=== PATIENT | male | born 1965 | race Hispanic/Latino ===

== ENCOUNTER 2017-07-18 15:41 | Emergency (ER) | payer SELFPAY ==
[2017-07-18] MEDS ORDERED: HumuLIN R IV ONE ×2 (16:30→21:01)
[2017-07-18] MEDS ORDERED: NACL 0.9% 1000 ML 1,000 ML IV ONE ×4 (16:30→21:01)
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
[2017-07-18 17:01] LABS: Basophils # (Auto) 0.1 K/mm3 (0.0-0.1); Basophils % (Auto) 0.5 % (0.0-1.8); Lymphocytes # (Auto) 1.6 K/mm3 (1.2-5.4); Lymphocytes % (Auto) 10.4 % (13.4-35.0); Mean Corpuscular HGB Conc 31 % (32-34); Mean Corpuscular Volume 83 fl (84-94); Monocytes % (Auto) 6.1 % (0.0-7.3); Platelet Count 365 K/mm3 (140-440); Red Cell Distribution Width 14.7 % (13.2-15.2)
[2017-07-18 17:02] LABS: Hematocrit 46.3 % (35.5-45.6); Hemoglobin 14.3 gm/dl (11.8-15.2); Mean Corpuscular Hemoglobin 26 pg (28-32)
--- NOTE | 2017-07-18 17:11 | Cat Scan Report ---
FINAL REPORT PROCEDURE: CT HEAD/BRAIN WO CON TECHNIQUE: Computerized tomography of the head was performed without contrast material. HISTORY: Altered mental status COMPARISON: No prior studies are available for comparison. FINDINGS: There is no CT evidence of intracranial mass, hemorrhage, acute territorial infarction, or hydrocephalus. The intracranial arteries are symmetric in density. Calvarium is intact. The visualized paranasal sinuses and mastoids are aerated. IMPRESSION: No CT evidence of acute abnormality
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
[2017-07-18 17:25] LABS: Alanine Aminotransferase 15 units/L (7-56); Albumin 4.5 g/dL (3.9-5); BUN/Creatinine Ratio 18; Blood Urea Nitrogen 18 mg/dL (9-20); Calcium 10.4 mg/dL (8.4-10.2); Hemolysis Index 17; Lipase 33 units/L (13-60)
[2017-07-18] MEDS ORDERED: D50W (25GM) Syringe IV PRN (17:44)
--- NOTE | 2017-07-18 18:22 | XRay Report ---
FINAL REPORT EXAM: XR CHEST 1V AP HISTORY: chest pain TECHNIQUE: upright single view chest PRIORS: None. FINDINGS: Cardiac and mediastinal contours are unremarkable. No focal pulmonary infiltrate is identified. No pleural fluid collection seen. Pulmonary vasculature is unremarkable. IMPRESSION: Negative single-view chest
[2017-07-18] MEDS ORDERED: HumuLIN R SUB-Q ONE (18:38)
[2017-07-18] MEDS ORDERED: SODIUM BICARBONATE IV ONE (18:50)
[2017-07-18 18:57] LABS: BUN/Creatinine Ratio 18; Blood Urea Nitrogen 18 mg/dL (9-20); Calcium 9.8 mg/dL (8.4-10.2); Hemolysis Index 17
[2017-07-18] MEDS ORDERED: HumuLIN R 100 UNITS in NACL 0.9% 99 ML IV SCH (19:00)
[2017-07-18 19:34] LABS: Bilirubin,Urine NEG (Negative); Blood,Urine NEG (Negative); Color,Urine Straw (Yellow); Mucus,Urine FEW /HPF; Urobilinogen,Urine < 2.0 mg/dL (<2.0); WBC,Urine < 1.0 /HPF (0.0-6.0)
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
[2017-07-18 19:42] LABS: Amphetamine Screen,Urine PRESUMPTIVE NEGATIVE; Benzodiazepines Screen,Urine PRESUMPTIVE NEGATIVE; Cannabinoid Screen,Urine PRESUMPTIVE NEGATIVE; Cocaine Screen,Urine PRESUMPTIVE NEGATIVE; Methadone Screen,Urine PRESUMPTIVE NEGATIVE; Opiate Screen,Urine PRESUMPTIVE NEGATIVE
[2017-07-18 19:48] LABS: BUN/Creatinine Ratio 17; Blood Urea Nitrogen 17 mg/dL (9-20); Calcium 9.6 mg/dL (8.4-10.2); Hemolysis Index 12
[2017-07-18] MEDS ORDERED: ZOSYN/NS 3.375GM/50ML 3.375 GM/50 ML BAG IV SCH (20:00)
[2017-07-18 20:18] LABS: Basophils # (Auto) 0.1 K/mm3 (0.0-0.1); Basophils % (Auto) 0.7 % (0.0-1.8); Hematocrit 42.7 % (35.5-45.6); Hemoglobin 13.4 gm/dl (11.8-15.2); Lymphocytes # (Auto) 1.5 K/mm3 (1.2-5.4); Lymphocytes % (Auto) 11.5 % (13.4-35.0); Mean Corpuscular HGB Conc 31 % (32-34); Mean Corpuscular Volume 82 fl (84-94); Monocytes # (Auto) 0.9 K/mm3 (0.0-0.8); Monocytes % (Auto) 7.1 % (0.0-7.3); Platelet Count 320 K/mm3 (140-440); Red Blood Count 5.21 M/mm3 (3.65-5.03); Red Cell Distribution Width 14.4 % (13.2-15.2)
[2017-07-18 20:21] LABS: Mean Corpuscular Hemoglobin 26 pg (28-32)
[2017-07-18] MEDS ORDERED: HumuLIN R ONE (20:46)
[2017-07-18 20:47] LABS: BUN/Creatinine Ratio 19; Blood Urea Nitrogen 17 mg/dL (9-20); Hemolysis Index 23
[2017-07-18 21:11] VITALS: BP 104/52
[2017-07-18 21:43] LABS: BUN/Creatinine Ratio 20; Blood Urea Nitrogen 16 mg/dL (9-20); Calcium 9.1 mg/dL (8.4-10.2); Hemolysis Index 68
== END 2017-07-18 23:05 | disposition admitted as inpatient to this hospital (09) ==
LOC: ED 15:41
DX: R41.82 Altered mental status, unspecified (principal); I10 Essential (primary) hypertension; E11.10 Type 2 diabetes mellitus with ketoacidosis without coma
CPT/HCPCS: 36415; 70450; 71045; 72125; 80048; 80053; 80307; 81001; 82140; 82962; 83690; 83735; 84100; 85025; 87040; 96361; 96365; 96372; 96375; 99285; J2543; J7030; J1815

== ENCOUNTER 2017-07-19 12:48 | Inpatient (IN) | payer OTHER ==
[2017-07-19] MEDS ORDERED: D50W (25GM) Syringe IV PRN ×2 (13:09→14:38)
[2017-07-19] MEDS ORDERED: NACL 0.9% 1000 ML 1,000 ML IV ONE ×2 (13:11)
[2017-07-19] MEDS ORDERED: TYLENOL PR ONE (13:12)
--- NOTE | 2017-07-19 13:16 | Emergency Department Report ---
ED General Adult HPI - General Chief complaint: Altered Mental Status Stated complaint: DKA/ALTERED MENTAL STATUS Time Seen by Provider: 07/19/17 13:09 Source: EMS Mode of arrival: Stretcher Limitations: Altered Mental Status - History of Present Illness Initial comments: Patient is 52 years old male history of diabetes on insulin. Patient noncompliant with his medication. He was seen here yesterday for DKA and he refused to stay. Patient was found laying on the street altered. Patient brought by EMS to the ER for evaluation of altered mental status. Patient initial blood sugars more than 100. Tachycardic at 120 with a temperature of 101.2. Patient responded to command. - Related Data Previous Rx's Medication Instructions Recorded Last Taken Type Insulin NPH/Regular [Novolin 70/30] 18 unit SQ BIDDIAB #1 vial 07/18/17 Unknown Rx Syring W-Ndl,Disp,Insul,0.5 ml 1 each MC BID #1 box 07/18/17 Unknown Rx [Ultra Comfort] Allergies Allergy/AdvReac Type Severity Reaction Status Date / Time No Known Allergies Allergy Unverified 07/18/17 16:14 ED Review of Systems ROS: Stated complaint: DKA/ALTERED MENTAL STATUS Other details as noted in HPI Comment: All other systems reviewed and negative Constitutional: denies: chills, fever Respiratory: denies: cough, orthopnea, shortness of breath, SOB with exertion, SOB at rest, wheezing Cardiovascular: denies: chest pain, palpitations, dyspnea on exertion Gastrointestinal: denies: abdominal pain, nausea, vomiting, diarrhea, constipation, hematemesis, melena, hematochezia Neurological: denies: headache, weakness ED Past Medical Hx - Past Medical History Previous Medical History?: Yes Hx Hypertension: Yes Hx Diabetes: Yes - Social History Smoking Status: Unknown if ever smoked - Medications Home Medications: Home Medications Medication Instructions Recorded Confirmed Last Taken Type Insulin NPH/Regular [Novolin 70/30] 18 unit SQ BIDDIAB #1 vial 07/18/17 Unknown Rx Syring W-Ndl,Disp,Insul,0.5 ml 1 each MC BID #1 box 07/18/17 07/19/17 Unknown Rx [Ultra Comfort] ED Physical Exam - General Limitations: Altered Mental Status General appearance: obtunded - Head Head exam: Present: atraumatic, normocephalic, normal inspection - Eye Eye exam: Present: normal appearance, PERRL - ENT ENT exam: Present: normal exam, normal orophraynx, mucous membranes dry - Neck Neck exam: Present: normal inspection, full ROM. Absent: tenderness, meningismus, lymphadenopathy, thyromegaly - Respiratory Respiratory exam: Present: normal lung sounds bilaterally. Absent: respiratory distress, wheezes, rales, rhonchi, stridor, chest wall tenderness, accessory muscle use, decreased breath sounds, prolonged expiratory - Cardiovascular Cardiovascular Exam: Present: tachycardia - GI/Abdominal GI/Abdominal exam: Present: soft, normal bowel sounds. Absent: distended, tenderness, guarding, rebound, rigid, organomegaly, mass, bruit, pulsatile mass , hernia - Extremities Exam Extremities exam: Present: normal inspection, full ROM, normal capillary refill - Back Exam Back exam: Present: normal inspection, full ROM. Absent: tenderness, CVA tenderness (R), CVA tenderness (L), muscle spasm, paraspinal tenderness, vertebral tenderness - Neurological Exam Neurological exam: Present: alert, oriented X3, CN II-XII intact - Skin Skin exam: Present: warm, intact, normal color ED Course Vital Signs 07/19/17 07/19/17 07/19/17 13:00 13:12 13:16 Temperature 101.4 F H 100.4 F H Pulse Rate 122 H 119 H Respiratory 20 21 21 Rate Blood Pressure 121/63 Blood Pressure 122/63 [Left] ED Medical Decision Making - Lab Data Result diagrams: 07/19/17 13:13 07/19/17 13:13 - Radiology Data Radiology results: report reviewed Chest x-ray unremarkable. - Medical Decision Making I discussed patient with Dr Gipson, he agreed to admit to his service. Critical Care Time: Yes Critical care time in (mins) excluding proc time.: 30 Critical care attestation.: If time is entered above; I have spent that time in minutes in the direct care of this critically ill patient, excluding procedure time. ED Disposition Clinical Impression: DKA (diabetic ketoacidoses), Altered mental state Disposition: OP ADMIT IP TO THIS HOSP Is pt being admited?: Yes Condition: Stable Instructions: Diabetic Ketoacidosis (ED) Referrals: PRIMARY CARE,MD [Primary Care Provider] - 3-5 Days
[2017-07-19 13:26] LABS: Basophils # (Auto) 0.1 K/mm3 (0.0-0.1); Basophils % (Auto) 0.5 % (0.0-1.8); Hematocrit 39.4 % (35.5-45.6); Hemoglobin 12.8 gm/dl (11.8-15.2); Lymphocytes # (Auto) 1.2 K/mm3 (1.2-5.4); Lymphocytes % (Auto) 10.3 % (13.4-35.0); Mean Corpuscular HGB Conc 33 % (32-34); Mean Corpuscular Hemoglobin 26 pg (28-32); Mean Corpuscular Volume 81 fl (84-94); Monocytes # (Auto) 0.8 K/mm3 (0.0-0.8); Monocytes % (Auto) 6.5 % (0.0-7.3); Platelet Count 315 K/mm3 (140-440); Red Blood Count 4.89 M/mm3 (3.65-5.03); Red Cell Distribution Width 14.9 % (13.2-15.2)
--- NOTE | 2017-07-19 13:43 | XRay Report ---
AP CHEST: HISTORY: Altered mental status, fever AP view of the chest demonstrates a normal mediastinal and cardiac contour with clear lungs and normal bony and soft tissue structures. No change since 07/18/17. IMPRESSION: Unremarkable AP chest.
[2017-07-19 13:45] LABS: Alanine Aminotransferase 11 units/L (7-56); Albumin 3.5 g/dL (3.9-5); BUN/Creatinine Ratio 19; Blood Urea Nitrogen 21 mg/dL (9-20); Calcium 8.8 mg/dL (8.4-10.2); Hemolysis Index 5
[2017-07-19] MEDS ORDERED: HumuLIN R 100 UNITS in NACL 0.9% 99 ML IV SCH ×2 (14:00→15:00)
[2017-07-19] MEDS ORDERED: SODIUM CHLORIDE FLUSH SYRINGE 10 ML IV PRN (14:35)
--- NOTE | 2017-07-19 14:35 | History and Physical Report ---
History of Present Illness Chief complaint: confused History of present illness: 52 YO Male with DM, HTN, Medication Noncompliance presents to ED for evaluation. Pt confused and unable to provide detailed history. Pt was found down, and confused laying in the street. EMS called, and upon arrival the patient was found to be confused. Prescriptions for insulin therapy were found in the patients pocket. PT transported to [facility] for further care and evaluation. Pt seen and evaluated in ED and found to have Fever to 101.2, DKA, Acidosis, and Encephalopathy. Pt admitted to ICU and placed on insulin drip. No reports of trauma, BRBPR, Headache, Falls, NVD, skin rash, or recent ill contacts. Past History Past Medical History: diabetes, hypertension Past Surgical History: No surgical history, Other (reviewed) Social history: , lives with family Family history: diabetes, hypertension Medications and Allergies Allergies Allergy/AdvReac Type Severity Reaction Status Date / Time No Known Allergies Allergy Unverified 07/18/17 16:14 Home Medications Medication Instructions Recorded Confirmed Last Taken Type Insulin NPH/Regular [Novolin 70/30] 18 unit SQ BIDDIAB #1 vial 07/18/17 Unknown Rx Syring W-Ndl,Disp,Insul,0.5 ml 1 each MC BID #1 box 07/18/17 07/19/17 Unknown Rx [Ultra Comfort] Active Meds: Active Medications Dextrose (D50w (25gm) Syringe) 0 ml IV PRN PRN PRN Reason: Hypoglycemia Insulin Human Regular 100 (units/ Sodium Chloride) 100 mls @ 1 mls/hr IV TITR DARRIAN; Protocol Last Admin: 07/19/17 14:07 Dose: 6 units/hr, 6 mls/hr Piperacillin Sod/Tazobactam Sod (Zosyn/Ns 3.375gm/50ml) 3.375 gm in 50 mls @ 100 mls/hr IV Q6HR DARRIAN Review of Systems ROS unobtainable: due to mental status Exam - Constitutional Vitals: Temp Pulse Resp BP Pulse Ox 100.4 F H 119 H 21 122/63 07/19/17 13:12 07/19/17 13:12 07/19/17 13:16 07/19/17 13:12 General appearance: Present: mild distress - EENT Eyes: Present: miosis ENT: hearing intact, clear oral mucosa - Neck Neck: Present: supple, normal ROM - Respiratory Respiratory effort: normal Respiratory: bilateral: CTA - Cardiovascular Rhythm: other (tachycardia) Heart Sounds: Present: S1 & S2. Absent: rub, click - Extremities Extremities: pulses symmetrical, No edema Peripheral Pulses: within normal limits - Abdominal General gastrointestinal: Present: soft, non-tender, non-distended, normal bowel sounds Male genitourinary: Present: normal - Integumentary Integumentary: Present: clear, warm, dry - Musculoskeletal Musculoskeletal: generalized weakness - Psychiatric Psychiatric: no intact judgment & insight, no memory intact, agitated - Neurologic Neurologic: CNII-XII intact, moves all extremities Results - Labs CBC & Chem 7: 07/19/17 13:13 07/19/17 13:13 Labs: Abnormal lab results 07/19/17 07/19/17 07/19/17 Range/Units 12:56 13:13 13:13 WBC 11.7 H (4.5-11.0) K/mm3 MCV 81 L (84-94) fl MCH 26 L (28-32) pg Lymph % (Auto) 10.3 L (13.4-35.0) % Seg Neutrophils % 82.7 H (40.0-70.0) % Seg Neutrophils # 9.7 H (1.8-7.7) K/mm3 POC ABG pH (7.35-7.45) POC ABG pCO2 (35-45) POC ABG pO2 (80-105) Carbon Dioxide 11 L (22-30) mmol/L BUN 21 H (9-20) mg/dL Glucose 401 H (75-100) mg/dL POC Glucose 416 H (70-105) Total Creatine Kinase (55-170) units/L Albumin 3.5 L (3.9-5) g/dL 07/19/17 07/19/17 Range/Units 13:13 13:24 WBC (4.5-11.0) K/mm3 MCV (84-94) fl MCH (28-32) pg Lymph % (Auto) (13.4-35.0) % Seg Neutrophils % (40.0-70.0) % Seg Neutrophils # (1.8-7.7) K/mm3 POC ABG pH 7.262 L (7.35-7.45) POC ABG pCO2 23.8 L (35-45) POC ABG pO2 146 H (80-105) Carbon Dioxide (22-30) mmol/L BUN (9-20) mg/dL Glucose (75-100) mg/dL POC Glucose (70-105) Total Creatine Kinase 219 H (55-170) units/L Albumin (3.9-5) g/dL Assessment and Plan - Patient Problems (1) DKA (diabetic ketoacidoses) Current Visit: Yes Status: Acute Qualifiers: Diabetes mellitus complication detail: with coma Plan to address problem: Admit to ICU, DKA Protocol: Insulin drip, monitor uop q shift, monitor anion gap , serial bmp, IVF resuscitation therapy, (2) Encephalopathy Current Visit: Yes Status: Acute Plan to address problem: neuro checks, treat DKA, supportive care. (3) Acidosis Current Visit: Yes Status: Acute (4) HTN (hypertension) Current Visit: No Status: Acute Qualifiers: Hypertension type: essential hypertension Qualified Code(s): I10 - Essential (primary) hypertension Plan to address problem: monitor bp q shift, continue perhospital therapy, IV hydralazine prn (5) SIRS (systemic inflammatory response syndrome) Current Visit: Yes Status: Acute Plan to address problem: Empiric IV antibiotic therapy, supportive care, repeat cbc, treat DKA (6) DVT prophylaxis Current Visit: Yes Status: Acute Plan to address problem: scd to ble while in bed.
[2017-07-19] MEDS ORDERED: NACL 0.9% 1000 ML 2,000 ML IV ONE (14:38)
[2017-07-19] MEDS: ZOSYN/NS 3.375GM/50ML 3.375 GM/50 ML BAG IV SCH ×2 (14:40→17:50)
[2017-07-19] MEDS ORDERED: NACL 0.9% 1000 ML 1,000 ML ONE (15:11)
[2017-07-19 15:16] LABS: BUN/Creatinine Ratio 17; Blood Urea Nitrogen 19 mg/dL (9-20); Calcium 8.2 mg/dL (8.4-10.2); Hemolysis Index 4
[2017-07-19 17:07] LABS: BUN/Creatinine Ratio 18; Blood Urea Nitrogen 18 mg/dL (9-20); Calcium 8.1 mg/dL (8.4-10.2); Hemolysis Index 8
[2017-07-19 19:18] LABS: BUN/Creatinine Ratio 18; Blood Urea Nitrogen 16 mg/dL (9-20); Calcium 8.3 mg/dL (8.4-10.2); Hemolysis Index 3
[2017-07-19] MEDS ORDERED: D5W/0.45% NACL/KCL 20 MEQ 20 MEQ/1,000 ML BAG IV SCH (20:00)
[2017-07-19 21:10] LABS: BUN/Creatinine Ratio 19; Blood Urea Nitrogen 17 mg/dL (9-20); Calcium 8.4 mg/dL (8.4-10.2); Hemolysis Index 3
[2017-07-19] MEDS: SODIUM CHLORIDE FLUSH SYRINGE 10 ML IV SCH (21:55)
[2017-07-19 23:08] LABS: Bilirubin,Urine NEG (Negative); Blood,Urine SM (Negative); Color,Urine Yellow (Yellow); Protein,Urine <15 mg/dL mg/dL (Negative); Urobilinogen,Urine < 2.0 mg/dL (<2.0); WBC,Urine < 1.0 /HPF (0.0-6.0)
[2017-07-20 00:06] LABS: BUN/Creatinine Ratio 19; Blood Urea Nitrogen 15 mg/dL (9-20); Calcium 8.4 mg/dL (8.4-10.2); Hemolysis Index 0
[2017-07-20] MEDS: ZOSYN/NS 3.375GM/50ML 3.375 GM/50 ML BAG IV SCH ×2 (00:34→06:01)
[2017-07-20 05:58] LABS: BUN/Creatinine Ratio 19; Blood Urea Nitrogen 15 mg/dL (9-20); Calcium 8.1 mg/dL (8.4-10.2); Hemolysis Index 9
[2017-07-20 07:23] LABS: BUN/Creatinine Ratio 18; Blood Urea Nitrogen 14 mg/dL (9-20); Calcium 8.1 mg/dL (8.4-10.2); Hemolysis Index 5
[2017-07-20] MEDS: SODIUM CHLORIDE FLUSH SYRINGE 10 ML IV SCH (09:52)
[2017-07-20] MEDS: cefTRIAXone 1 GM in NACL 0.9% 20 ML IV SCH (10:41)
[2017-07-20 13:56] LABS: BUN/Creatinine Ratio 17; Blood Urea Nitrogen 12 mg/dL (9-20); Calcium 8.3 mg/dL (8.4-10.2); Hemolysis Index 16
[2017-07-20] MEDS ORDERED: NACL 0.9% 1000 ML 1,000 ML IV SCH (14:00)
--- NOTE | 2017-07-20 14:00 | Progress Note ---
Assessment and Plan / DKA (diabetic ketoacidoses) change insulin drip to subqu as AG closed consistent carbohydrate diet, BG check qachs adjust insulin dose as needed / Encephalopathy neuro checks, treat DKA, supportive care. /HTN (hypertension) monitor bp q shift, IV hydralazine prn /SIRS (systemic inflammatory response syndrome) likely from DKA Empiric IV antibiotic therapy for now, supportive care, follow cx / DVT prophylaxis scd to ble while in bed. Hospitalist Physical exam: GENERAL: well-developed and well-nourished AAM lying on bed appeared to be in no discomfort. HEENT: Normocephalic. Atraumatic. No conjunctival congestion or icterus. Patient has moist mucous membranes. NECK: Supple. Trachea midline. CHEST/LUNGS: Clear to auscultated bilaterally, breathing nonlabored. No wheezes crackles or rhonchi. HEART/CARDIOVASCULAR: Regular in rate and rhythm. S1 and S2 positive. ABDOMEN: Abdomen is soft, nontender. Patient has normal bowel sounds. SKIN: There is no rash. Warm and dry. NEURO: No focal motor deficit. Follows command. MUSCULOSKELETAL: No joint effusion or tenderness. EXTRIMITY: No edema, no cyanosis or clubbing. PSYCH: Cooperative. Subjective Date of service: 07/20/17 Interval history: Pt seen and examined denies chest pain or SOB Objective - Constitutional Vitals: Vital Signs - 12hr 07/20/17 07/20/17 07/20/17 03:00 04:00 05:00 Pulse Rate 72 68 64 Respiratory 13 13 16 Rate Blood Pressure 116/66 105/61 118/55 O2 Sat by Pulse 100 100 100 Oximetry 07/20/17 07/20/17 07/20/17 06:00 06:51 07:00 Pulse Rate 63 65 66 Respiratory 12 11 L 16 Rate Blood Pressure 128/70 128/70 110/63 O2 Sat by Pulse 100 100 100 Oximetry 07/20/17 07/20/17 07/20/17 07:11 07:21 07:31 Pulse Rate 72 68 69 Respiratory 18 12 19 Rate Blood Pressure 110/63 128/70 128/70 O2 Sat by Pulse 100 100 100 Oximetry 07/20/17 07/20/17 07/20/17 07:41 07:51 08:48 Pulse Rate 68 67 Respiratory 16 15 Rate Blood Pressure 128/70 128/70 110/63 O2 Sat by Pulse 100 100 Oximetry 07/20/17 08:50 Pulse Rate Respiratory Rate Blood Pressure 110/63 O2 Sat by Pulse Oximetry - Labs CBC & Chem 7: 07/21/17 03:33 07/20/17 13:12 Labs: Abnormal lab results 07/19/17 07/19/17 07/19/17 Range/Units 13:13 14:08 14:24 Sodium (137-145) mmol/L Chloride (98-107) mmol/L Carbon Dioxide 11 L (22-30) mmol/L Creatinine (0.8-1.5) mg/dL Glucose 346 H (75-100) mg/dL POC Glucose 338 H (70-105) Calcium 8.2 L (8.4-10.2) mg/dL Total Creatine Kinase 219 H (55-170) units/L 07/19/17 07/19/17 07/19/17 Range/Units 15:10 16:39 16:41 Sodium (137-145) mmol/L Chloride 108.2 H (98-107) mmol/L Carbon Dioxide 13 L (22-30) mmol/L Creatinine (0.8-1.5) mg/dL Glucose 260 H (75-100) mg/dL POC Glucose 324 H 259 H (70-105) Calcium 8.1 L (8.4-10.2) mg/dL Total Creatine Kinase (55-170) units/L 07/19/17 07/19/17 07/19/17 Range/Units 18:13 18:57 19:43 Sodium (137-145) mmol/L Chloride 110.6 H (98-107) mmol/L Carbon Dioxide 17 L (22-30) mmol/L Creatinine (0.8-1.5) mg/dL Glucose 200 H (75-100) mg/dL POC Glucose 225 H 205 H (70-105) Calcium 8.3 L (8.4-10.2) mg/dL Total Creatine Kinase (55-170) units/L 07/19/17 07/19/17 07/19/17 Range/Units 20:42 20:45 22:06 Sodium (137-145) mmol/L Chloride 111.3 H (98-107) mmol/L Carbon Dioxide 18 L (22-30) mmol/L Creatinine (0.8-1.5) mg/dL Glucose 186 H (75-100) mg/dL POC Glucose 200 H 220 H (70-105) Calcium (8.4-10.2) mg/dL Total Creatine Kinase (55-170) units/L 07/19/17 07/19/17 07/19/17 Range/Units 23:07 23:33 23:58 Sodium (137-145) mmol/L Chloride 111.6 H (98-107) mmol/L Carbon Dioxide 20 L (22-30) mmol/L Creatinine (0.8-1.5) mg/dL Glucose 194 H (75-100) mg/dL POC Glucose 234 H 205 H (70-105) Calcium (8.4-10.2) mg/dL Total Creatine Kinase (55-170) units/L 07/20/17 07/20/17 07/20/17 Range/Units 01:08 02:19 02:55 Sodium (137-145) mmol/L Chloride (98-107) mmol/L Carbon Dioxide (22-30) mmol/L Creatinine (0.8-1.5) mg/dL Glucose (75-100) mg/dL POC Glucose 170 H 149 H 166 H (70-105) Calcium (8.4-10.2) mg/dL Total Creatine Kinase (55-170) units/L 07/20/17 07/20/17 07/20/17 Range/Units 04:10 05:12 05:24 Sodium 146 H (137-145) mmol/L Chloride 113.5 H (98-107) mmol/L Carbon Dioxide 20 L (22-30) mmol/L Creatinine (0.8-1.5) mg/dL Glucose 155 H (75-100) mg/dL POC Glucose 159 H 152 H (70-105) Calcium 8.1 L (8.4-10.2) mg/dL Total Creatine Kinase (55-170) units/L 07/20/17 07/20/17 07/20/17 Range/Units 06:11 06:46 07:29 Sodium 146 H (137-145) mmol/L Chloride 114.1 H (98-107) mmol/L Carbon Dioxide 19 L (22-30) mmol/L Creatinine (0.8-1.5) mg/dL Glucose 145 H (75-100) mg/dL POC Glucose 166 H 151 H (70-105) Calcium 8.1 L (8.4-10.2) mg/dL Total Creatine Kinase (55-170) units/L 07/20/17 07/20/17 07/20/17 Range/Units 08:52 09:53 10:42 Sodium (137-145) mmol/L Chloride (98-107) mmol/L Carbon Dioxide (22-30) mmol/L Creatinine (0.8-1.5) mg/dL Glucose (75-100) mg/dL POC Glucose 138 H 141 H 155 H (70-105) Calcium (8.4-10.2) mg/dL Total Creatine Kinase (55-170) units/L 07/20/17 07/20/17 07/20/17 Range/Units 11:43 12:44 13:12 Sodium (137-145) mmol/L Chloride 112.4 H (98-107) mmol/L Carbon Dioxide 19 L (22-30) mmol/L Creatinine 0.7 L (0.8-1.5) mg/dL Glucose 163 H (75-100) mg/dL POC Glucose 165 H 161 H (70-105) Calcium 8.3 L (8.4-10.2) mg/dL Total Creatine Kinase (55-170) units/L 07/20/17 Range/Units 13:48 Sodium (137-145) mmol/L Chloride (98-107) mmol/L Carbon Dioxide (22-30) mmol/L Creatinine (0.8-1.5) mg/dL Glucose (75-100) mg/dL POC Glucose 173 H (70-105) Calcium (8.4-10.2) mg/dL Total Creatine Kinase (55-170) units/L
[2017-07-20] MEDS: HumuLIN R SUB-Q SCH ×2 (16:56→22:18)
[2017-07-21] MEDS: SODIUM CHLORIDE FLUSH SYRINGE 10 ML IV SCH ×3 (00:03→21:56)
[2017-07-21 04:31] LABS: Basophils # (Auto) 0.1 K/mm3 (0.0-0.1); Basophils % (Auto) 0.7 % (0.0-1.8); Eosinophils # (Auto) 0.1 K/mm3 (0.0-0.4); Eosinophils % (Auto) 0.5 % (0.0-4.3); Hematocrit 39.8 % (35.5-45.6); Hemoglobin 12.5 gm/dl (11.8-15.2); Lymphocytes # (Auto) 1.7 K/mm3 (1.2-5.4); Lymphocytes % (Auto) 17.6 % (13.4-35.0); Mean Corpuscular HGB Conc 31 % (32-34); Mean Corpuscular Volume 80 fl (84-94); Monocytes # (Auto) 0.7 K/mm3 (0.0-0.8); Platelet Count 242 K/mm3 (140-440); Red Blood Count 4.98 M/mm3 (3.65-5.03); Red Cell Distribution Width 14.3 % (13.2-15.2)
[2017-07-21 04:32] LABS: Mean Corpuscular Hemoglobin 25 pg (28-32)
[2017-07-21] MEDS: HumuLIN R SUB-Q SCH ×4 (09:09→21:55)
[2017-07-21] MEDS: cefTRIAXone 1 GM in NACL 0.9% 20 ML IV SCH (09:09)
--- NOTE | 2017-07-21 10:26 | Progress Note ---
Assessment and Plan Assessment and plan: DKA (diabetic ketoacidoses) Started on Novolin 70/30n subcut, now off Insulin drip consistent carbohydrate diet, BG check qachs adjust insulin dose as needed Encephalopathy neuro checks, treat DKA, supportive care. Will get CT head HTN (hypertension) monitor bp q shift, IV hydralazine prn SIRS (systemic inflammatory response syndrome) likely from DKA Empiric IV antibiotic therapy for now, supportive care, follow cx May discontinue soon DVT prophylaxis with SCds. History Interval history: Feels better, Less confused, No chest pain no weakness Hospitalist Physical - Physical exam Narrative exam: General:Not in acute distress, lying in bed,obese HEENT:Normocephalic, atraumatic Neck:supple,no JVD Lungs: Clear to auscultation, no rales, no wheeze Heart:S1 and S2 regular, no murmurs, rubs or gallop Abd: soft, non tender,non distended, normal bowel sounds Ext:no edema, no clubbing or cyanosis Neuro:Awake,alert,oriented in person,place, mild confused, sluggish, moves all extremities, Psych:normal mood - Constitutional Vitals: Temp Pulse Resp BP Pulse Ox 97.6 F 94 H 18 168/95 96 07/21/17 08:00 07/21/17 10:00 07/21/17 10:00 07/21/17 10:00 07/21/17 10:00 Results - Labs CBC & Chem 7: 07/21/17 03:33 07/21/17 10:14 Labs: Laboratory Last Values WBC 9.4 K/mm3 (4.5-11.0) 07/21/17 03:33 RBC 4.98 M/mm3 (3.65-5.03) 07/21/17 03:33 Hgb 12.5 gm/dl (11.8-15.2) 07/21/17 03:33 Hct 39.8 % (35.5-45.6) 07/21/17 03:33 MCV 80 fl (84-94) L 07/21/17 03:33 MCH 25 pg (28-32) L 07/21/17 03:33 MCHC 31 % (32-34) L 07/21/17 03:33 RDW 14.3 % (13.2-15.2) 07/21/17 03:33 Plt Count 242 K/mm3 (140-440) 07/21/17 03:33 Lymph % (Auto) 17.6 % (13.4-35.0) 07/21/17 03:33 [place] % (Auto) 7.0 % (0.0-7.3) 07/21/17 03:33 Eos % (Auto) 0.5 % (0.0-4.3) 07/21/17 03:33 Baso % (Auto) 0.7 % (0.0-1.8) 07/21/17 03:33 Lymph # 1.7 K/mm3 (1.2-5.4) 07/21/17 03:33 [place] # 0.7 K/mm3 (0.0-0.8) 07/21/17 03:33 Eos # 0.1 K/mm3 (0.0-0.4) 07/21/17 03:33 Baso # 0.1 K/mm3 (0.0-0.1) 07/21/17 03:33 Seg Neutrophils % 74.2 % (40.0-70.0) H 07/21/17 03:33 Seg Neutrophils # 7.0 K/mm3 (1.8-7.7) 07/21/17 03:33 POC ABG pH 7.262 (7.35-7.45) L 07/19/17 13:24 POC ABG pCO2 23.8 (35-45) L 07/19/17 13:24 POC ABG pO2 146 (80-105) H 07/19/17 13:24 POC ABG HCO3 10.7 07/19/17 13:24 POC ABG Total CO2 11 07/19/17 13:24 POC ABG O2 Sat 99 07/19/17 13:24 POC ABG Base Excess -16 07/19/17 13:24 FiO2 30 % 07/19/17 13:24 Sodium 143 mmol/L (137-145) 07/20/17 13:12 Potassium 4.0 mmol/L (3.6-5.0) 07/20/17 13:12 Chloride 112.4 mmol/L (98-107) H 07/20/17 13:12 Carbon Dioxide 19 mmol/L (22-30) L 07/20/17 13:12 Anion Gap 16 mmol/L 07/20/17 13:12 BUN 12 mg/dL (9-20) 07/20/17 13:12 Creatinine 0.7 mg/dL (0.8-1.5) L 07/20/17 13:12 Estimated GFR > 60 ml/min 07/20/17 13:12 BUN/Creatinine Ratio 17 % 07/20/17 13:12 Glucose 163 mg/dL (75-100) H 07/20/17 13:12 POC Glucose 220 (70-105) H 07/21/17 07:48 Lactic Acid 1.30 mmol/L (0.7-2.0) 07/19/17 14:43 Calcium 8.3 mg/dL (8.4-10.2) L 07/20/17 13:12 Phosphorus 3.10 mg/dL (2.5-4.5) 07/19/17 14:43 Magnesium 1.90 mg/dL (1.7-2.3) 07/19/17 14:43 Total Bilirubin 0.70 mg/dL (0.1-1.2) 07/19/17 13:13 AST 12 units/L (5-40) 07/19/17 13:13 ALT 11 units/L (7-56) 07/19/17 13:13 Alkaline Phosphatase 93 units/L (35-129) 07/19/17 13:13 Total Creatine Kinase 219 units/L (55-170) H 07/19/17 13:13 Total Protein 7.1 g/dL (6.3-8.2) 07/19/17 13:13 Albumin 3.5 g/dL (3.9-5) L 07/19/17 13:13 Albumin/Globulin Ratio 1.0 % 07/19/17 13:13 Urine Color Yellow (Yellow) 07/19/17 22:27 Urine Turbidity Clear (Clear) 07/19/17 22:27 Urine pH 5.0 (5.0-7.0) 07/19/17 22:27 Ur Specific [place] 1.021 (1.003-1.030) 07/19/17 22:27 Urine Protein <15 mg/dl mg/dL (Negative) 07/19/17 22:27 Urine Glucose (UA) >=500 mg/dL (Negative) 07/19/17 22:27 Urine Ketones 80 mg/dL (Negative) 07/19/17 22: Urine Blood Sm (Negative) 07/19/17: Urine Nitrite Neg (Negative) 07/19/17: Urine Bilirubin Neg (Negative) 07/19/17: Urine Urobilinogen < 2.0 mg/dL (<2.0) 07/19/17: Ur Leukocyte Esterase Neg (Negative) 07/19/17: Urine WBC (Auto) < 1.0 /HPF (0.0-6.0) 07/19/17: Urine RBC (Auto) 2.0 /HPF (0.0-6.0) 07/19/17:
[2017-07-21 10:48] LABS: BUN/Creatinine Ratio 15; Blood Urea Nitrogen 9 mg/dL (9-20); Calcium 8.6 mg/dL (8.4-10.2); Hemolysis Index 5
--- NOTE | 2017-07-21 12:03 | Cat Scan Report ---
CT HEAD WITHOUT CONTRAST: HISTORY: Altered mental status. TECHNIQUE: Sequential 2.5mm CT images. COMPARISON: 07/18/17. FINDINGS: An approximate 3.3 x 2.3 cm area of diminished attenuation is developed in the left occipital lobe since the previous exam. This has the appearance of a subacute ischemic infarct. There is no evidence for hemorrhage or significant mass effect. The remaining brain parenchyma remains unremarkable. Ventricular size is normal. The posterior fossa contents are unremarkable. The calvarium, visualized sinuses and mastoid air cells are unremarkable. IMPRESSION: A subacute ischemic insult is suspected in the left occipital lobe as outlined above which is new since the exam 3 days ago. No evidence for hemorrhage.
[2017-07-21] MEDS ORDERED: ASPIRIN PO STA (15:10)
[2017-07-21] MEDS ORDERED: SODIUM CHLORIDE FLUSH SYRINGE 10 ML IV PRN (16:09)
[2017-07-21] MEDS ORDERED: APRESOLINE IV PRN (16:15)
--- NOTE | 2017-07-21 18:30 | Magnetic Resonance Report ---
FINAL REPORT PROCEDURE: MR BRAIN WO CON TECHNIQUE: Magnetic resonance imaging of the brain was performed without contrast material. HISTORY: stroke COMPARISON: CT head 07/18/2017 FINDINGS: There is a 2.7 centimeter area of restricted diffusion in the medial left occipital lobe, compatible with acute ischemia. Midline structures are unremarkable in a appearance. No surrounding mass effect. No hydrocephalus. No abnormal extra-axial fluid collection is seen. Paranasal sinuses are aerated. Globes and orbits are unremarkable in appearance. IMPRESSION: 2.7 centimeter area of acute infarct in the medial left occipital lobe
[2017-07-22 07:42] LABS: Chol/HDL Ratio 5.91 %
[2017-07-22] MEDS: HumuLIN R SUB-Q SCH ×5 (08:52→22:00)
--- NOTE | 2017-07-22 09:25 | Progress Note ---
Assessment and Plan Assessment and plan: DKA (diabetic ketoacidoses) Started on Novolin 70/30n subcut, now off Insulin drip consistent carbohydrate diet, BG check qachs adjust insulin dose as needed Acute ischemic stroke left occipital. Continue Aspirin Ongoing stroke workup Encephalopathy Now awake,alert,was confused HTN (hypertension) monitor bp q shift, IV hydralazine prn SIRS (systemic inflammatory response syndrome) likely from DKA Empiric IV antibiotic therapy for now, supportive care, follow cx May discontinue soon DVT prophylaxis with Lovenox,SCds. History Interval history: Patient presented with DKA now found to have acute ischemic stroke, No chest pain no focal weakness Hospitalist Physical - Physical exam Narrative exam: General:Not in acute distress, lying in bed,obese HEENT:Normocephalic, atraumatic Neck:supple,no JVD Lungs: Clear to auscultation, no rales, no wheeze Heart:S1 and S2 regular, no murmurs, rubs or gallop Abd: soft, non tender,non distended, normal bowel sounds Ext:no edema, no clubbing or cyanosis Neuro:Awake,alert,oriented in person,place and time, moves all extremities, Psych:normal mood - Constitutional Vitals: Temp Pulse Resp BP Pulse Ox 98.4 F 94 H 18 121/77 95 07/22/17 03:27 07/22/17 03:27 07/22/17 03:27 07/22/17 03:27 07/22/17 03:27 General appearance: Present: mild distress Results - Labs CBC & Chem 7: 07/21/17 03:33 07/21/17 10:14 Labs: Laboratory Last Values WBC 9.4 K/mm3 (4.5-11.0) 07/21/17 03:33 RBC 4.98 M/mm3 (3.65-5.03) 07/21/17 03:33 Hgb 12.5 gm/dl (11.8-15.2) 07/21/17 03:33 Hct 39.8 % (35.5-45.6) 07/21/17 03:33 MCV 80 fl (84-94) L 07/21/17 03:33 MCH 25 pg (28-32) L 07/21/17 03:33 MCHC 31 % (32-34) L 07/21/17 03:33 RDW 14.3 % (13.2-15.2) 07/21/17 03:33 Plt Count 242 K/mm3 (140-440) 07/21/17 03:33 Lymph % (Auto) 17.6 % (13.4-35.0) 07/21/17 03:33 [place] % (Auto) 7.0 % (0.0-7.3) 07/21/17 03:33 Eos % (Auto) 0.5 % (0.0-4.3) 07/21/17 03:33 Baso % (Auto) 0.7 % (0.0-1.8) 07/21/17 03:33 Lymph # 1.7 K/mm3 (1.2-5.4) 07/21/17 03:33 [place] # 0.7 K/mm3 (0.0-0.8) 07/21/17 03:33 Eos # 0.1 K/mm3 (0.0-0.4) 07/21/17 03:33 Baso # 0.1 K/mm3 (0.0-0.1) 07/21/17 03:33 Seg Neutrophils % 74.2 % (40.0-70.0) H 07/21/17 03:33 Seg Neutrophils # 7.0 K/mm3 (1.8-7.7) 07/21/17 03:33 POC ABG pH 7.262 (7.35-7.45) L 07/19/17 13:24 POC ABG pCO2 23.8 (35-45) L 07/19/17 13:24 POC ABG pO2 146 (80-105) H 07/19/17 13:24 POC ABG HCO3 10.7 07/19/17 13:24 POC ABG Total CO2 11 07/19/17 13:24 POC ABG O2 Sat 99 07/19/17 13:24 POC ABG Base Excess -16 07/19/17 13:24 FiO2 30 % 07/19/17 13:24 Sodium 139 mmol/L (137-145) 07/21/17 10:14 Potassium 3.8 mmol/L (3.6-5.0) 07/21/17 10:14 Chloride 101.4 mmol/L (98-107) 07/21/17 10:14 Carbon Dioxide 21 mmol/L (22-30) L 07/21/17 10:14 Anion Gap 20 mmol/L 07/21/17 10:14 BUN 9 mg/dL (9-20) 07/21/17 10:14 Creatinine 0.6 mg/dL (0.8-1.5) L 07/21/17 10:14 Estimated GFR > 60 ml/min 07/21/17 10:14 BUN/Creatinine Ratio 15 % 07/21/17 10:14 Glucose 238 mg/dL (75-100) H 07/21/17 10:14 POC Glucose 193 (70-105) H 07/22/17 06:11 Hemoglobin A1c 17.2 % (4-6) H 07/22/17 06:56 Lactic Acid 1.30 mmol/L (0.7-2.0) 07/19/17 14:43 Calcium 8.6 mg/dL (8.4-10.2) 07/21/17 10:14 Phosphorus 3.10 mg/dL (2.5-4.5) 07/19/17 14:43 Magnesium 1.90 mg/dL (1.7-2.3) 07/19/17 14:43 Total Bilirubin 0.70 mg/dL (0.1-1.2) 07/19/17 13:13 AST 12 units/L (5-40) 07/19/17 13:13 ALT 11 units/L (7-56) 07/19/17 13:13 Alkaline Phosphatase 93 units/L (35-129) 07/19/17 13:13 Total Creatine Kinase 219 units/L (55-170) H 07/19/17 13:13 Total Protein 7.1 g/dL (6.3-8.2) 07/19/17 13:13 Albumin 3.5 g/dL (3.9-5) L 07/19/17 13:13 Albumin/Globulin Ratio 1.0 % 07/19/17 13:13 Triglycerides 152 mg/dL (2-149) H 07/22/17 06:56 Cholesterol 266 mg/dL (50-199) H 07/22/17 06:56 LDL Cholesterol Direct 206 mg/dL (50-130) H 07/22/17 06:56 HDL Cholesterol 45 mg/dL (40-59) 07/22/17 06:56 Cholesterol/HDL Ratio 5.91 % 07/22/17 06:56 Urine Color Yellow (Yellow) 07/19/17: Urine Turbidity Clear (Clear) 07/19/17: Urine pH 5.0 (5.0-7.0) 07/19/17: Ur Specific [place] 1.021 (1.003-1.030) 07/19/17: Urine Protein <15 mg/dl mg/dL (Negative) 07/19/17 Urine Glucose (UA) >=500 mg/dL (Negative) 07/19/17 Urine Ketones 80 mg/dL (Negative) 07/19/17 Urine Blood Sm (Negative) 07/19/17: Urine Nitrite Neg (Negative) 07/19/17 Urine Bilirubin Neg (Negative) 07/19/17 Urine Urobilinogen < 2.0 mg/dL (<2.0) 07/19/17: Ur Leukocyte Esterase Neg (Negative) 07/19/17 Urine WBC (Auto) < 1.0 /HPF (0.0-6.0) 07/19/17 Urine RBC (Auto) 2.0 /HPF (0.0-6.0) 07/19/17
[2017-07-22] MEDS: ASPIRIN PO SCH (11:22)
[2017-07-22] MEDS: SODIUM CHLORIDE FLUSH SYRINGE 10 ML IV SCH ×2 (11:22→22:01)
[2017-07-22] MEDS: LOVENOX SUB-Q SCH (11:22)
[2017-07-22] MEDS: cefTRIAXone 1 GM in NACL 0.9% 20 ML IV SCH (11:24)
[2017-07-23] MEDS: HumuLIN R SUB-Q SCH ×3 (09:25→17:10)
[2017-07-23] MEDS: ASPIRIN PO SCH (09:25)
[2017-07-23] MEDS: LOVENOX SUB-Q SCH (09:25)
[2017-07-23] MEDS: SODIUM CHLORIDE FLUSH SYRINGE 10 ML IV SCH (09:27)
[2017-07-23] MEDS: cefTRIAXone 1 GM in NACL 0.9% 20 ML IV SCH (10:19)
--- NOTE | 2017-07-23 11:59 | History and Physical Report ---
History of Present Illness Date of examination: 07/23/17 Date of admission: 07/19/17 13:57 Chief complaint: FOCUSED NEUROLOGY CONSULT NOTE CC: I am asked to see this52 AA M for DKA and found incidentally to have an acute small left occipital infarct. HPI: From chart and patient. Only most pertinent hx to the question at hand is addressed. Because of altered mental status pt had an intitial head Ct which was normal. Left AMA from ED, came back, admitted, a second CT was done which now showed in the infact (images reviewed) and then a head MRI was done which showed the same on DWI, no other lesions. Carotid ultrasound showed no hemodynam sig stenoses and vertebral flow was antegrade bilat. Echocardiogram showed a "left to right" shunt on an aggitate saline study - not further characterized. No prior hx stroke. Pt is not aware of any deficits. ROS: an 11 point ROS is negative NEURO EXAM: HEENT: NL NECK; supple, no bruits COR: no m, rubs MS: alert, oriented x 3, speech fluent and clear, follows all commands quickly and accurately. CN II - 12: there is a right homonomous inferior quadrantanopia on finger confrontation. No other abn MOT: nl all four extrem prox and dist SENS: denies loss to touch throughout CEREB: fnf nl bilat DRTs: 1+ adn symm prox and dist all four extrem, great toes downgoing to planta stim bilat GAIT: nl DX IMP: 1. Acute left occipital infarct (posterior circulation) with right inf quandrant cut on visual exam. there is no other deficit. this could have been secondary to his recent DKA. 3. Other med dxs as charted. RECC: 1. Have cardiology further characterize the "left to right shunt". eg where?? 2. Get venous doppler study of legs to exclude leg clots 3. Rx with ASA 325 mg daily 4. Go from there. Discussed with family and Dr Estrada. Call as needed. Jeaneth Rutledge MD Past History Past Medical History: diabetes, hypertension Past Surgical History: No surgical history, Other (reviewed) Social history: , lives with family Family history: diabetes, hypertension Medications and Allergies Allergies Allergy/AdvReac Type Severity Reaction Status Date / Time No Known Allergies Allergy Unverified 07/18/17 16:14 Home Medications Medication Instructions Recorded Confirmed Last Taken Type Insulin NPH/Regular [Novolin 70/30] 18 unit SQ BIDDIAB #1 vial 07/18/17 Unknown Rx Syring W-Ndl,Disp,Insul,0.5 ml 1 each MC BID #1 box 07/18/17 07/19/17 Unknown Rx [Ultra Comfort] Active Meds: Active Medications Aspirin (Aspirin) 325 mg PO QDAY [facility] Last Admin: 07/23/17 09:25 Dose: 325 mg Dextrose (D50w (25gm) Syringe) 0 ml IV PRN PRN PRN Reason: Hypoglycemia Enoxaparin Sodium (Lovenox) 40 mg SUB-Q DAILY [facility] Last Admin: 07/23/17 09:25 Dose: 40 mg Hydralazine HCl (Apresoline) 10 mg IV Q6H PRN PRN Reason: Keep SBP between 160-185 mm Hg Ceftriaxone Sodium 1 gm/ (Sodium Chloride) 20 mls @ 2 mls/min IV Q24HR [facility] Last Admin: 07/23/17 10:19 Dose: 2 mls/min Sodium Chloride (Nacl 0.9% 1000 Ml) 1,000 mls @ 100 mls/hr IV DIRECT [facility] Insulin Human NPH (Humulin N) 15 unit SUB-Q BIDDIAB [facility] Last Admin: 07/23/17 09:24 Dose: 15 unit Insulin Human Regular (Humulin R) 0 units SUB-Q ACHS [facility]; Protocol Last Admin: 07/23/17 09:25 Dose: 3 units Sodium Chloride (Sodium Chloride Flush Syringe 10 Ml) 10 ml IV BID [facility] Last Admin: 07/23/17 09:27 Dose: 10 ml Sodium Chloride (Sodium Chloride Flush Syringe 10 Ml) 10 ml IV PRN PRN PRN Reason: LINE FLUSH Sodium Chloride (Sodium Chloride Flush Syringe 10 Ml) 10 ml IV PRN PRN PRN Reason: LINE FLUSH Physical Examination - Vital Signs Vital Signs: Vital Signs Resp 20 07/19/17 12:51 Results - Laboratory Findings CBC and BMP: 07/21/17 03:33 07/21/17 10:14 Abnormal Lab Findings: Abnormal Labs 07/19/17 07/19/17 07/19/17 12:56 13:13 13:13 WBC 11.7 H MCV 81 L MCH 26 L MCHC Lymph % (Auto) 10.3 L Seg Neutrophils % 82.7 H Seg Neutrophils # 9.7 H POC ABG pH POC ABG pCO2 POC ABG pO2 Sodium Chloride Carbon Dioxide 11 L BUN 21 H Creatinine Glucose 401 H POC Glucose 416 H Hemoglobin A1c Calcium Total Creatine Kinase Albumin 3.5 L Triglycerides Cholesterol LDL Cholesterol Direct 07/19/17 07/19/17 07/19/17 13:13 13:24 14:08 WBC MCV MCH MCHC Lymph % (Auto) Seg Neutrophils % Seg Neutrophils # POC ABG pH 7.262 L POC ABG pCO2 23.8 L POC ABG pO2 146 H Sodium Chloride Carbon Dioxide BUN Creatinine Glucose POC Glucose 338 H Hemoglobin A1c Calcium Total Creatine Kinase 219 H Albumin Triglycerides Cholesterol LDL Cholesterol Direct 07/19/17 07/19/17 07/19/17 14:24 15:10 16:39 WBC MCV MCH MCHC Lymph % (Auto) Seg Neutrophils % Seg Neutrophils # POC ABG pH POC ABG pCO2 POC ABG pO2 Sodium Chloride 108.2 H Carbon Dioxide 11 L 13 L BUN Creatinine Glucose 346 H 260 H POC Glucose 324 H Hemoglobin A1c Calcium 8.2 L 8.1 L Total Creatine Kinase Albumin Triglycerides Cholesterol LDL Cholesterol Direct 07/19/17 07/19/17 07/19/17 16:41 18:13 18:57 WBC MCV MCH MCHC Lymph % (Auto) Seg Neutrophils % Seg Neutrophils # POC ABG pH POC ABG pCO2 POC ABG pO2 Sodium Chloride 110.6 H Carbon Dioxide 17 L BUN Creatinine Glucose 200 H POC Glucose 259 H 225 H Hemoglobin A1c Calcium 8.3 L Total Creatine Kinase Albumin Triglycerides Cholesterol LDL Cholesterol Direct 07/19/17 07/19/17 07/19/17 19:43 20:42 20:45 WBC MCV MCH MCHC Lymph % (Auto) Seg Neutrophils % Seg Neutrophils # POC ABG pH POC ABG pCO2 POC ABG pO2 Sodium Chloride 111.3 H Carbon Dioxide 18 L BUN Creatinine Glucose 186 H POC Glucose 205 H 200 H Hemoglobin A1c Calcium Total Creatine Kinase Albumin Triglycerides Cholesterol LDL Cholesterol Direct 07/19/17 07/19/17 07/19/17 22:06 23:07 23:33 WBC MCV MCH MCHC Lymph % (Auto) Seg Neutrophils % Seg Neutrophils # POC ABG pH POC ABG pCO2 POC ABG pO2 Sodium Chloride 111.6 H Carbon Dioxide 20 L BUN Creatinine Glucose 194 H POC Glucose 220 H 234 H Hemoglobin A1c Calcium Total Creatine Kinase Albumin Triglycerides Cholesterol LDL Cholesterol Direct 07/19/17 07/20/17 07/20/17 23:58 01:08 02:19 WBC MCV MCH MCHC Lymph % (Auto) Seg Neutrophils % Seg Neutrophils # POC ABG pH POC ABG pCO2 POC ABG pO2 Sodium Chloride Carbon Dioxide BUN Creatinine Glucose POC Glucose 205 H 170 H 149 H Hemoglobin A1c Calcium Total Creatine Kinase Albumin Triglycerides Cholesterol LDL Cholesterol Direct 07/20/17 07/20/17 07/20/17 02:55 04:10 05:12 WBC MCV MCH MCHC Lymph % (Auto) Seg Neutrophils % Seg Neutrophils # POC ABG pH POC ABG pCO2 POC ABG pO2 Sodium 146 H Chloride 113.5 H Carbon Dioxide 20 L BUN Creatinine Glucose 155 H POC Glucose 166 H 159 H Hemoglobin A1c Calcium 8.1 L Total Creatine Kinase Albumin Triglycerides Cholesterol LDL Cholesterol Direct 07/20/17 07/20/17 07/20/17 05:24 06:11 06:46 WBC MCV MCH MCHC Lymph % (Auto) Seg Neutrophils % Seg Neutrophils # POC ABG pH POC ABG pCO2 POC ABG pO2 Sodium 146 H Chloride 114.1 H Carbon Dioxide 19 L BUN Creatinine Glucose 145 H POC Glucose 152 H 166 H Hemoglobin A1c Calcium 8.1 L Total Creatine Kinase Albumin Triglycerides Cholesterol LDL Cholesterol Direct 07/20/17 07/20/17 07/20/17 07:29 08:52 09:53 WBC MCV MCH MCHC Lymph % (Auto) Seg Neutrophils % Seg Neutrophils # POC ABG pH POC ABG pCO2 POC ABG pO2 Sodium Chloride Carbon Dioxide BUN Creatinine Glucose POC Glucose 151 H 138 H 141 H Hemoglobin A1c Calcium Total Creatine Kinase Albumin Triglycerides Cholesterol LDL Cholesterol Direct 07/20/17 07/20/17 07/20/17 10:42 11:43 12:44 WBC MCV MCH MCHC Lymph % (Auto) Seg Neutrophils % Seg Neutrophils # POC ABG pH POC ABG pCO2 POC ABG pO2 Sodium Chloride Carbon Dioxide BUN Creatinine Glucose POC Glucose 155 H 165 H 161 H Hemoglobin A1c Calcium Total Creatine Kinase Albumin Triglycerides Cholesterol LDL Cholesterol Direct 07/20/17 07/20/17 07/20/17 13:12 13:48 15:01 WBC MCV MCH MCHC Lymph % (Auto) Seg Neutrophils % Seg Neutrophils # POC ABG pH POC ABG pCO2 POC ABG pO2 Sodium Chloride 112.4 H Carbon Dioxide 19 L BUN Creatinine 0.7 L Glucose 163 H POC Glucose 173 H 165 H Hemoglobin A1c Calcium 8.3 L Total Creatine Kinase Albumin Triglycerides Cholesterol LDL Cholesterol Direct 07/20/17 07/20/17 07/21/17 16:54 21:54 03:33 WBC MCV 80 L MCH 25 L MCHC 31 L Lymph % (Auto) Seg Neutrophils % 74.2 H Seg Neutrophils # POC ABG pH POC ABG pCO2 POC ABG pO2 Sodium Chloride Carbon Dioxide BUN Creatinine Glucose POC Glucose 190 H 254 H Hemoglobin A1c Calcium Total Creatine Kinase Albumin Triglycerides Cholesterol LDL Cholesterol Direct 07/21/17 07/21/17 07/21/17 07:48 10:14 11:47 WBC MCV MCH MCHC Lymph % (Auto) Seg Neutrophils % Seg Neutrophils # POC ABG pH POC ABG pCO2 POC ABG pO2 Sodium Chloride Carbon Dioxide 21 L BUN Creatinine 0.6 L Glucose 238 H POC Glucose 220 H 259 H Hemoglobin A1c Calcium Total Creatine Kinase Albumin Triglycerides Cholesterol LDL Cholesterol Direct 07/21/17 07/21/17 07/22/17 18:22 21:49 06:11 WBC MCV MCH MCHC Lymph % (Auto) Seg Neutrophils % Seg Neutrophils # POC ABG pH POC ABG pCO2 POC ABG pO2 Sodium Chloride Carbon Dioxide BUN Creatinine Glucose POC Glucose 186 H 212 H 193 H Hemoglobin A1c Calcium Total Creatine Kinase Albumin Triglycerides Cholesterol LDL Cholesterol Direct 07/22/17 07/22/17 07/22/17 06:56 06:56 12:07 WBC MCV MCH MCHC Lymph % (Auto) Seg Neutrophils % Seg Neutrophils # POC ABG pH POC ABG pCO2 POC ABG pO2 Sodium Chloride Carbon Dioxide BUN Creatinine Glucose POC Glucose 294 H Hemoglobin A1c 17.2 H Calcium Total Creatine Kinase Albumin Triglycerides 152 H Cholesterol 266 H LDL Cholesterol Direct 206 H 07/22/17 07/22/17 07/23/17 17:22 21:49 05:52 WBC MCV MCH MCHC Lymph % (Auto) Seg Neutrophils % Seg Neutrophils # POC ABG pH POC ABG pCO2 POC ABG pO2 Sodium Chloride Carbon Dioxide BUN Creatinine Glucose POC Glucose 275 H 257 H 203 H Hemoglobin A1c Calcium Total Creatine Kinase Albumin Triglycerides Cholesterol LDL Cholesterol Direct
--- NOTE | 2017-07-23 14:36 | Discharge Summary ---
Providers - Providers Date of Admission: 07/19/17 13:57 Date of discharge: 07/23/17 Attending physician: ERNIE SAENZ 07/21/17 16:10 Occupational Therapy Evaluate and Treat [CONS] Routine Comment: Reason For Exam: Neuro deficits Physical Therapy Evaluation and Treat [CONS] Routine Comment: Reason For Exam: Neuro deficits 07/21/17 16:15 Speech Therapy Evaluation and Treat [CONS] Routine Reason For Exam: swallow eval 07/23/17 07:06 Consult to Physician [CONS] Routine Comment: Consulting Provider: EDUARDO FRIAS Physician Instructions: Reason For Exam: acute stroke Primary care physician: [employer] Hospitalization Condition: Fair Disposition: DC-01 TO HOME OR SELFCARE - Discharge Diagnoses (1) DKA (diabetic ketoacidoses) Status: Acute Qualifiers: Diabetes mellitus complication detail: with coma (2) Diabetes Status: Chronic Qualifiers: Diabetes mellitus type: type 2 (3) HTN (hypertension) Status: Chronic Qualifiers: Hypertension type: essential hypertension Qualified Code(s): I10 - Essential (primary) hypertension Core Measure Documentation - Palliative Care Palliative Care/ Comfort Measures: Not Applicable - Core Measures Any of the following diagnoses?: stroke - Stroke Discharge Requirements Statin for LDL = or >70 mg/dl on DC: Yes Anticoag for atrial fib/atrial flutter: Not Applicable Antithrombotic for ischemic stroke: Yes Exam - Constitutional Vitals: Temp Pulse Resp BP Pulse Ox 98.5 F 82 20 137/78 97 07/23/17 08:05 07/23/17 08:05 07/23/17 08:05 07/23/17 08:05 07/23/17 08:05 Plan Activity: no restrictions Diet: low fat, low cholesterol, low salt, diabetic Additional Instructions: 1.Follow up with PCP in 1 week. 2.Follow up with cardiology in 1-2 weeks Follow up with: PRIMARY CARE,MD [Primary Care Provider] - 3-5 Days Prescriptions: Aspirin [Aspirin TAB] 325 mg PO QDAY #30 tablet Insulin NPH/Regular [Novolin 70/30] 20 unit SQ BIDDIAB #1 vial Simvastatin 40 mg PO QHS #30 tablet
[2017-07-23 16:31] VITALS: BP 141/74
--- NOTE | 2017-07-24 10:04 | Vascular Lab Report ---
LOWER EXTREMITY VENOUS DUPLEX: REASON FOR EXAM: Deep venous thrombosis. COMMENTS ON THE RIGHT: All veins visualized are freely compressible without evidence of internal echogenicity. Flow is spontaneous and phasic throughout. COMMENTS ON THE LEFT: All veins visualized are freely compressible without evidence of internal echogenicity. Flow is spontaneous and phasic throughout. IMPRESSION: No evidence of acute or chronic deep venous thrombosis in either lower extremity.
== END 2017-07-23 18:06 | disposition home or self-care (01) | DRG 637 ==
LOC: ED 12:48 → EEVIPCON 12:48 → CC1 13:57 → 3A 07-21 10:46
PROVIDERS: ADMIT Internal Medicine; ATTEND Internal Medicine
DX: E11.10 Type 2 diabetes mellitus with ketoacidosis without coma (principal); G93.40 Encephalopathy, unspecified; I63.9 Cerebral infarction, unspecified; I10 Essential (primary) hypertension; R65.10 Systemic inflammatory response syndrome (SIRS) of non-infectious origin without acute organ dysfunction; Z79.4 Long term (current) use of insulin; Z91.14 Patient's other noncompliance with medication regimen; Z83.3 Family history of diabetes mellitus; Z82.49 Family history of ischemic heart disease and other diseases of the circulatory system
CPT/HCPCS: 36415; 70450; 70551; 71045; 80048; 80053; 80061; 81001; 82140; 82550; 82803; 82962; 83036; 83735; 84100; 85025; 87040; 93005; 93010; 93306; 93880; 93970; J0696; J1650; J1815; J2543; J7030